=== PATIENT | male | born 1970 | race Caucasian/White ===

== ENCOUNTER → 2020-05-27 | Outpatient (CLI) | payer OTHER ==
[~2020-05-27] MED LIST: ABAC1TAB14 PO; ASCO1TAB4 PO; GLUC1CAP48 PO; INUL1TAB4 PO; TURM500C4 PO
== END | disposition home or self-care (01) ==
LOC: STAR 08:39
PROVIDERS: ATTEND Otolaryngology
DX: Z20.822 Contact with and (suspected) exposure to COVID-19 (principal); J34.2 Deviated nasal septum; D14.0 Benign neoplasm of middle ear, nasal cavity and accessory sinuses
CPT/HCPCS: 87635

== ENCOUNTER 2020-06-02 10:28 | Day surgery (SDC) | payer OTHER ==
[~2020-06-02] VITALS: Ht 177.8 cm; Wt 77.3 kg
[~2020-06-02 10:28] MED LIST changes: +BACITRACIN OINT 500U/GM, 15 GM ONE; +EPINEPHRINE 1 MG/ML, 1ML ONE; +EPINEPHRINE TOPICAL SOLN 1 MG/ML, 30ML ONE; +FLUORESCEIN SODIUM 500 MG/5 ML ONE; +LIDOCAINE 1%, 20ML ONE
[2020-06-02] MEDS ORDERED: CHLORHEXIDINE 15 ML UDC ONE (11:14)
[2020-06-02] MEDS ORDERED: CHLORHEXIDINE 15 ML UDC MM ONE (11:30)
[2020-06-02] MEDS ORDERED: FENTANYL PF 250 MCG/5ML ONE (11:42)
[2020-06-02] MEDS ORDERED: LACTATED RINGERS 1,000 ML IV SCH (12:00)
[2020-06-02] MEDS ORDERED: DEXMEDETOMIDINE 200 MCG/2 ML ONE (12:21)
[2020-06-02] MEDS ORDERED: HYDROmorphone 1 MG/ML, 1ML INJ IVPush PRN (13:00)
[2020-06-02] MEDS ORDERED: OXYcodone 5 MG/5 ML ORAL.SOL UDC PO PRN (13:00)
[2020-06-02] MEDS ORDERED: HALOPERIDOL 5 MG/ML IV PRN (13:00)
[2020-06-02] MEDS ORDERED: FENTANYL PF 100 MCG/2ML IV PRN (13:00)
[2020-06-02] MEDS ORDERED: LABETALOL 5MG/ML, 20ML IV PRN (13:00)
[2020-06-02] MEDS ORDERED: hydrALAzine 20 MG/ML, 1ML IV PRN (13:00)
[2020-06-02] MEDS ORDERED: PROMETHAZINE 25 MG/ML, 1ML IVPush PRN (13:00)
[2020-06-02] MEDS ORDERED: ACETAMINOPHEN 325 MG TABLET PO PRN (13:00)
[2020-06-02] MEDS ORDERED: DIPHENHYDRAMINE 50 MG/ML, 1ML IVPush PRN (13:00)
[2020-06-02] MEDS ORDERED: DEXAMETHASONE 4 MG/ML, 1ML ONE (13:07)
[2020-06-02] MEDS ORDERED: NEOSTIGMINE 1 MG/ML, 10ML ONE (13:07)
[2020-06-02] MEDS ORDERED: ROCURONIUM 10MG/ML,5ML ONE (13:07)
[2020-06-02] MEDS ORDERED: GLYCOPYRROLATE 0.2MG/1ML, 5ML ONE (13:07)
[2020-06-02] MEDS ORDERED: SUCCINYLCHOLINE 20 MG/ML, 10ML ONE (13:07)
[2020-06-02] MEDS ORDERED: CEFAZOLIN 1,000 MG ONE (13:07)
[2020-06-02] MEDS ORDERED: PROPOFOL 10 MG/ML, 20ML ONE (13:07)
[2020-06-02] MEDS ORDERED: ONDANSETRON 2MG/ML, 2ML ONE (13:07)
== END 2020-06-02 15:20 | disposition home or self-care (01) ==
LOC: OUT 10:28
PROVIDERS: ATTEND Otolaryngology
DX: J34.89 Other specified disorders of nose and nasal sinuses (principal); J34.2 Deviated nasal septum; J34.0 Abscess, furuncle and carbuncle of nose; D14.0 Benign neoplasm of middle ear, nasal cavity and accessory sinuses; Z79.899 Other long term (current) drug therapy; Z88.8 Allergy status to other drugs, medicaments and biological substances; Z98.890 Other specified postprocedural states; Z82.49 Family history of ischemic heart disease and other diseases of the circulatory system
CPT/HCPCS: 30999; 88304; 88305; 88331; J0171; J0330; J0690; J1100; J2405; J2704; J3010; J7120; J2710

== ENCOUNTER 2020-08-25 06:48 | Day surgery (SDC) | payer OTHER ==
[~2020-08-25] VITALS: Ht 177.8 cm; Wt 76.5 kg
[~2020-08-25 06:48] MED LIST changes: -BACITRACIN OINT 500U/GM, 15 GM ONE; -EPINEPHRINE 1 MG/ML, 1ML ONE; -EPINEPHRINE TOPICAL SOLN 1 MG/ML, 30ML ONE; -FLUORESCEIN SODIUM 500 MG/5 ML ONE; -LIDOCAINE 1%, 20ML ONE
[2020-08-25 07:21] VITALS: BP 125/81
[2020-08-25] MEDS ORDERED: LACTATED RINGERS 1,000 ML IV SCH (07:30)
[2020-08-25] MEDS ORDERED: CHLORHEXIDINE 15 ML UDC PO ONE (07:30)
[2020-08-25] MEDS ORDERED: HYDROmorphone 1 MG/ML, 1ML INJ ONE (08:34)
[2020-08-25] MEDS ORDERED: MIDAZOLAM 1 MG/ML, 2ML ONE (08:34)
[2020-08-25] MEDS ORDERED: FENTANYL PF 100 MCG/2ML ONE (08:34)
[2020-08-25] MEDS ORDERED: LIDOCAINE/PF 1%, 30ML ONE ×2 (08:42→11:01)
[2020-08-25] MEDS ORDERED: EPINEPHRINE 1 MG/ML, 1ML ONE ×2 (08:42→11:01)
[2020-08-25] MEDS ORDERED: OXYMETAZOLINE NASAL SPRAY 0.05%,30ML ONE ×2 (08:42→11:01)
[2020-08-25] MEDS ORDERED: ONDANSETRON 2MG/ML, 2ML IVPush PRN (09:00)
[2020-08-25] MEDS ORDERED: hydrALAzine 20 MG/ML, 1ML IV PRN (09:00)
[2020-08-25] MEDS ORDERED: FENTANYL PF 100 MCG/2ML IV PRN (09:00)
[2020-08-25] MEDS ORDERED: LABETALOL 5MG/ML, 20ML IV PRN (09:00)
[2020-08-25] MEDS ORDERED: DIAZEPAM 5 MG/ML, 2ML IVPush PRN (09:00)
[2020-08-25] MEDS ORDERED: DIPHENHYDRAMINE 50 MG/ML, 1ML IVPush PRN (09:00)
[2020-08-25] MEDS ORDERED: OXYcodone 5 MG/5 ML ORAL.SOL UDC PO PRN (09:00)
[2020-08-25] MEDS ORDERED: HYDROmorphone 1 MG/ML, 1ML INJ IVPush PRN (09:00)
[2020-08-25] MEDS ORDERED: METOCLOPRAMIDE 5 MG/ML, 2ML IVPush PRN (09:00)
[2020-08-25] MEDS ORDERED: METOPROLOL 1 MG/ML, 5ML IV PRN (09:00)
[2020-08-25] MEDS ORDERED: KETOROLAC 30 MG/1 ML IV PRN (09:00)
[2020-08-25] MEDS ORDERED: ACETAMINOPHEN 325 MG TABLET PO PRN (09:00)
[2020-08-25] MEDS ORDERED: EPHEDRINE 50 MG/ML, 1ML IVPush PRN (09:00)
[2020-08-25] MEDS ORDERED: PROMETHAZINE 25 MG/ML, 1ML IVPush PRN (09:00)
[2020-08-25] MEDS ORDERED: HALOPERIDOL 5 MG/ML IV PRN (09:00)
[2020-08-25] MEDS ORDERED: MEPERIDINE/PF 25MG/0.5ML IVPush PRN (09:00)
[2020-08-25] MEDS ORDERED: EPINEPHRINE TOPICAL SOLN 1 MG/ML, 30ML ONE (11:01)
[2020-08-25] MEDS ORDERED: BACITRACIN OINT 500U/GM, 15 GM ONE (11:01)
[2020-08-25] MEDS ORDERED: FLUORESCEIN SODIUM 500 MG/5 ML ONE (11:01)
[2020-08-25] MEDS ORDERED: CEFAZOLIN 1,000 MG ONE (15:59)
[2020-08-25] MEDS ORDERED: GLYCOPYRROLATE 0.2MG/1ML, 5ML ONE (15:59)
[2020-08-25] MEDS ORDERED: DEXAMETHASONE 4 MG/ML, 1ML ONE (15:59)
[2020-08-25] MEDS ORDERED: ROCURONIUM 10MG/ML,5ML ONE (15:59)
[2020-08-25] MEDS ORDERED: PROPOFOL 10 MG/ML, 20ML ONE (15:59)
[2020-08-25] MEDS ORDERED: ONDANSETRON 2MG/ML, 2ML ONE (15:59)
[2020-08-25] MEDS ORDERED: NEOSTIGMINE 1 MG/ML, 10ML ONE (15:59)
== END 2020-08-25 14:05 | disposition home or self-care (01) ==
LOC: OUT 06:48
PROVIDERS: ATTEND Otolaryngology
DX: J34.89 Other specified disorders of nose and nasal sinuses (principal); D18.09 Hemangioma of other sites; J32.8 Other chronic sinusitis; J34.2 Deviated nasal septum; D14.0 Benign neoplasm of middle ear, nasal cavity and accessory sinuses; Z20.822 Contact with and (suspected) exposure to COVID-19; Z79.899 Other long term (current) drug therapy; Z88.8 Allergy status to other drugs, medicaments and biological substances
CPT/HCPCS: 31237; 87635; 88304; 88305; 88331; J0171; J0690; J1100; J1170; J2250; J2405; J2704; J2710; J3010; J7120